=== PATIENT | female | born 1995 | race Asian ===

== ENCOUNTER 2021-09-30 17:31 | Emergency (ER) | payer BC ==
[2021-09-30 18:24] LABS: #Eosinphils 0.1 10x3/uL (0.0-0.5); #Monocytes 0.4 10x3/uL (0.0-1.1); #Neutrophils 3.7 10x3/uL (1.5-8.4); %Basophils 0.2 % (0.0-2.0); %Lymphocytes 33.4 % (18.0-47.0); %Monocytes 5.7 % (0.0-10.0); %Neutrophils 59.5 % (40.0-75.0); Hemoglobin 12.4 g/dL (12.0-15.5); Mean Corpuscular HGB CONC 31.5 g/dL (32.0-36.0); Mean Corpuscular Hemoglobin 27.4 pg (27.0-33.0); Mean Platelet Volume 10.7 fl (7.4-10.4); Platelet Count 191 10x3/uL (150-450); RBC Distribution Width 12.9 % (11.5-14.5); Red Blood Cell (RBC) Count 4.53 10x6/uL (3.90-5.03); White Blood Cell (WBC) Count 6.2 10x3/uL (3.5-10.5)
[2021-09-30 18:41] LABS: Anion Gap 13 mmol/L (10-20); BUN (Urea Nitrogen) 14 mg/dL (7.0-18.7); Calc. Creatinine Clearance 0 mL/min (70-130); Carbon Dioxide 28 mmol/L (22-29); Chloride 107 mmol/L (98-107); Potassium 5.1 mmol/L (3.5-5.1); Sodium 143 mmol/L (136-145)
[2021-09-30 18:42] LABS: ALT (SGPT) 14 U/L (8-55); AST (SGOT) 19 U/L (5-34); Albumin 4.6 g/dL (3.5-5.0); Alkaline Phosphatase 59 U/L (40-110); Bilirubin, Total 0.1 mg/dL (0.2-1.2); Calcium 9.6 mg/dL (7.8-10.44); Globulin 3.3 g/dL (2.4-3.5); Glucose 111 mg/dL (70-105); Protein, Total 7.9 g/dL (6.0-8.3)
== END 2021-09-30 19:10 | disposition home or self-care (01) ==
LOC: CSHERS 17:31
DX: U07.1 COVID-19 (principal); R79.89 Other specified abnormal findings of blood chemistry
CPT/HCPCS: 71275; 80053; 83880; 84484; 85025; 93005